=== PATIENT | female | born 1975 | race Caucasian/White ===

== ENCOUNTER → 2017-08-09 | Outpatient (CLI) | payer OTHER ==
[~2017-08-09] MED LIST: None at this time
== END | disposition home or self-care (01) ==
LOC: CFH 11:13
PROVIDERS: ATTEND Obstetrics & Gynecology Gynecology
DX: Z12.31 Encounter for screening mammogram for malignant neoplasm of breast (principal)
CPT/HCPCS: 77063; G0202

== ENCOUNTER 2020-08-08 06:05 | Day surgery (SDC) | payer OTHER ==
[~2020-08-08] VITALS: Ht 160 cm; Wt 76.3 kg
[~2020-08-08 06:05] MED LIST changes: +ACYC-114 PO; +FLUO20TA25 PO; +MULT-516 PO
[2020-08-08] MEDS ORDERED: LACTATED RINGERS 1,000 ML IV SCH (06:30)
[2020-08-08] MEDS ORDERED: CHLORHEXIDINE 15 ML UDC MM STA (06:30)
[2020-08-08 06:31] VITALS: BP 100/71
[2020-08-08] MEDS ORDERED: CHLORHEXIDINE 15 ML UDC ONE (06:41)
[2020-08-08 06:50] LABS: HCG UR SG 1.024 (1.003-1.030)
[2020-08-08] MEDS ORDERED: FENTANYL PF 100 MCG/2ML ONE (06:53)
[2020-08-08] MEDS ORDERED: MIDAZOLAM 1 MG/ML, 2ML ONE (06:53)
[2020-08-08] MEDS ORDERED: DEXAMETHASONE 4 MG/ML, 1ML ONE (07:23)
[2020-08-08] MEDS ORDERED: PROPOFOL 10 MG/ML, 20ML ONE (07:23)
[2020-08-08] MEDS ORDERED: CLINDAMYCIN 150 MG/ML, 6ML ONE (07:23)
[2020-08-08] MEDS ORDERED: ONDANSETRON 2MG/ML, 2ML ONE (07:23)
[2020-08-08] MEDS ORDERED: LIDOCAINE-MPF 2% ,5ML ONE (07:23)
[2020-08-08] MEDS ORDERED: BUPIVACAINE/PF-EPI 0.5% 1:200K INFIL ONE (07:48)
[2020-08-08] MEDS ORDERED: MEPERIDINE/PF 25MG/0.5ML IVPush PRN (08:00)
[2020-08-08] MEDS ORDERED: OXYcodone 5 MG/5 ML ORAL.SOL UDC PO PRN (08:00)
[2020-08-08] MEDS ORDERED: HYDROmorphone 1 MG/ML, 1ML INJ IVPush PRN (08:00)
[2020-08-08] MEDS ORDERED: FENTANYL PF 100 MCG/2ML IV PRN (08:00)
[2020-08-08] MEDS ORDERED: HYDROcodone/APAP 7.5-325MG/15ML UDC PO PRN (08:00)
[2020-08-08] MEDS ORDERED: PROMETHAZINE 25 MG/ML, 1ML IVPush PRN (08:00)
[2020-08-08] MEDS ORDERED: DIPHENHYDRAMINE 50 MG/ML, 1ML IVPush PRN (08:30)
[2020-08-08] MEDS ORDERED: morphine SULFATE 10 MG/ML, 1ML IVPush PRN (08:30)
[2020-08-08] MEDS ORDERED: KETOROLAC 30 MG/1 ML IVPush PRN (08:30)
[2020-08-08] MEDS ORDERED: ONDANSETRON 2MG/ML, 2ML IVPush PRN (08:30)
[2020-08-08] MEDS ORDERED: HYDROcodone/APAP 5/325 TABLET PO PRN (08:30)
[2020-08-08] MEDS ORDERED: HYDR-3240 PO (09:20)
[2020-08-08] MEDS ORDERED: ONDA4TAB7 PO (09:20)
== END 2020-08-08 09:40 | disposition home or self-care (01) ==
LOC: OUT 06:05
PROVIDERS: ATTEND Surgery
DX: Q83.1 Accessory breast (principal); F32.9 Major depressive disorder, single episode, unspecified; F12.90 Cannabis use, unspecified, uncomplicated; Z20.828 Contact with and (suspected) exposure to other viral communicable diseases; Z88.0 Allergy status to penicillin; Z79.899 Other long term (current) drug therapy; Z72.89 Other problems related to lifestyle; Z87.891 Personal history of nicotine dependence
CPT/HCPCS: 19120; 81025; 87635; 88305; J1100; J2250; J2405; J2704; J3010